=== PATIENT | male | born 1935 | race Caucasian/White ===

== ENCOUNTER 2019-04-10 08:45 | Outpatient (CLI) | payer MEDICARE, OTHER | END 2019-04-10 08:46 | disposition home or self-care (01) | LOC: MADLAB 08:45 | PROVIDERS: ATTEND Physician Assistant Medical | DX: R19.7 Diarrhea, unspecified (principal) | CPT/HCPCS: 36415; 83516; 83735 ==

== ENCOUNTER 2019-05-08 12:31 | Outpatient (CLI) | payer MEDICARE, OTHER | END 2019-05-08 12:32 | disposition home or self-care (01) | LOC: MADLABBHPM 12:31 | PROVIDERS: ATTEND Family Medicine | DX: E87.1 Hypo-osmolality and hyponatremia (principal); E83.42 Hypomagnesemia | CPT/HCPCS: 36415; 83735 ==

== ENCOUNTER 2019-05-21 09:40 | Outpatient (CLI) | payer MEDICARE ==
[2019-05-21 10:03] LABS: #Eosinphils 0.1 thou/uL (0.0-0.7); #Lymphocytes 0.9 thou/uL (1.20-3.40); #Monocytes 0.3 thou/uL (0.11-0.59); #Neutrophils 3.2 thou/uL (1.40-6.50); %Basophils 0.8 % (0.0-1.0); %Eosinophils 1.8 % (0.0-10.0); %Lymphocytes 19.7 % (21.0-51.0); %Monocytes 7.3 % (0.0-10.0); %Neutrophils 70.4 % (42.0-75.0); Hemoglobin 11.3 g/dL (14.0-18.0); Mean Corpuscular HGB CONC 34.5 g/dL (32.0-36.0); Mean Corpuscular Hemoglobin 33.7 pg (27.0-31.0); Mean Corpuscular Volume 97.9 fL (78.0-98.0); Mean Platelet Volume 5.5 fL (7.4-10.4); Platelet Count 168 thou/uL (130-400); RBC Distribution Width 12.4 % (11.5-14.5); Red Blood Cell (RBC) Count 3.34 mill/uL (4.70-6.10); White Blood Cell (WBC) Count 4.5 thou/uL (4.8-10.8)
[2019-05-21 10:19] LABS: Anion Gap 16 mmol/L (10-20); BUN (Urea Nitrogen) 8 mg/dL (8.4-25.7); Calc. Creatinine Clearance 0 mL/min (70-130); Calcium 9.3 mg/dL (7.8-10.44); Carbon Dioxide 24 mmol/L (23-31); Chloride 99 mmol/L (98-107); Estimated GFR-MDRD 76; Glucose 149 mg/dL (83-110); Magnesium 1.2 mg/dL (1.6-2.6); Potassium 3.7 mmol/L (3.5-5.1); Sodium 135 mmol/L (136-145)
== END 2019-05-21 09:41 | disposition home or self-care (01) ==
LOC: MADLAB 09:40
PROVIDERS: ATTEND Internal Medicine Nephrology
DX: I12.9 Hypertensive chronic kidney disease with stage 1 through stage 4 chronic kidney disease, or unspecified chronic kidney disease (principal); N18.2 Chronic kidney disease, stage 2 (mild); E87.1 Hypo-osmolality and hyponatremia
CPT/HCPCS: 36415; 80048; 82040; 83735; 85025

== ENCOUNTER 2019-09-13 08:37 | Outpatient (CLI) | payer MEDICARE ==
[2019-09-13 09:17] LABS: Cardiac Risk 1.8 (Less than 4.5); Magnesium 1.3 mg/dL (1.6-2.6)
== END 2019-09-13 08:38 | disposition home or self-care (01) ==
LOC: MADLAB 08:37
PROVIDERS: ATTEND Family Medicine
DX: E78.2 Mixed hyperlipidemia (principal)
CPT/HCPCS: 36415; 80061; 83735